=== PATIENT | female | born 1960 | race Caucasian/White ===

== ENCOUNTER 2018-07-26 13:11 | Emergency (ER) | payer BC ==
[~2018-07-26] VITALS: Ht 170.2 cm; Wt 87.3 kg
[2018-07-26 13:34] VITALS: Ht 170.2 cm; Wt 87.3 kg
[2018-07-26] MEDS ORDERED: OXYBUTYNIN CHLOR5 MG PO (13:37)
[2018-07-26] MEDS ORDERED: TENORMIN25 MG PO (13:37)
[2018-07-26] MEDS ORDERED: PREMARIN0.625 MG PO (13:37)
[2018-07-26] MEDS ORDERED: LEXAPRO20 MG PO (13:37)
[2018-07-26 16:35] VITALS: BP 132/73
== END 2018-07-26 16:38 | disposition home or self-care (01) ==
LOC: D.ER 13:11
DX: S61.012A Laceration without foreign body of left thumb without damage to nail, initial encounter (principal); W26.0XXA Contact with knife, initial encounter; Y93.89 Activity, other specified; Y92.019 Unspecified place in single-family (private) house as the place of occurrence of the external cause